=== PATIENT | female | born 1980 | race Caucasian/White ===

== ENCOUNTER → 2019-09-17 | Outpatient (CLI) | payer BC ==
--- NOTE | 2019-10-28 10:49 | REP ---
LEFT SECOND DIGIT X-RAY: 4-VIEWS HISTORY: Injury. FINDINGS: 4-views of the left second digit are performed. There is a nondisplaced fracture at the base of the second middle phalanx which extends into the proximal interphalangeal joint. There is mild associated soft tissue swelling. I see no other evidence of fracture or dislocation. IMPRESSION: Nondisplaced fracture base of second middle phalanx. MTDD
== END ==
LOC: M RAD 07:21
PROVIDERS: ATTEND Physician Assistant
DX: S62.651A Nondisplaced fracture of middle phalanx of left index finger, initial encounter for closed fracture (principal); X58.XXXA Exposure to other specified factors, initial encounter; Y92.9 Unspecified place or not applicable

== ENCOUNTER → 2020-04-27 | Outpatient (REF) | LOC: M LABSMTC 11:59 | PROVIDERS: ATTEND Pediatrics | DX: Z11.52 Encounter for screening for COVID-19 (principal) ==

== ENCOUNTER → 2020-04-30 | Outpatient (REF) | LOC: M LABSMTC 11:08 | PROVIDERS: ATTEND Pediatrics ==

== ENCOUNTER → 2021-02-04 | Outpatient (REF) ==
[2021-02-04 12:00] LABS: RSV AMPLIFICATION NEGATIVE (NEGATIVE)
== END ==
LOC: M EMP 07:55
PROVIDERS: ATTEND Family Medicine
DX: Z20.822 Contact with and (suspected) exposure to COVID-19 (principal); Z11.52 Encounter for screening for COVID-19

== ENCOUNTER → 2021-10-06 | Outpatient (REF) | payer BC | LOC: M LAB REF 18:04 | PROVIDERS: ATTEND Surgery | DX: L57.0 Actinic keratosis (principal) ==

== ENCOUNTER → 2022-01-26 | Outpatient (REF) ==
[2022-01-26 13:45] LABS: RSV AMPLIFICATION NEGATIVE (NEGATIVE)
== END ==
LOC: M LABSMTC 10:49
PROVIDERS: ATTEND Family Medicine
DX: Z20.818 Contact with and (suspected) exposure to other bacterial communicable diseases (principal)

== ENCOUNTER → 2022-11-15 | Outpatient (REF) | LOC: M EMP 09:17 | PROVIDERS: ATTEND Family Medicine | DX: Z11.52 Encounter for screening for COVID-19 (principal) ==

== ENCOUNTER → 2023-02-27 | Outpatient (REF) | LOC: M EMP 08:49 | PROVIDERS: ATTEND Family Medicine | DX: Z02.89 Encounter for other administrative examinations (principal) ==

== ENCOUNTER → 2023-02-28 | Outpatient (REF) | payer BC | LOC: M LAB REF 12:21 | PROVIDERS: ATTEND Student in an Organized Health Care Education/Training Program | DX: J06.9 Acute upper respiratory infection, unspecified (principal) ==